=== PATIENT | male | born 1985 | race African-American/Black ===

== ENCOUNTER 2023-11-09 09:00 | Emergency (ER) | payer BC, OTHER, SELFPAY ==
[2023-11-09] MEDS ORDERED: LIDOCAINE 1% MPF 5 ML VIAL ONE (09:15)
--- NOTE | 2023-11-09 10:28 | ER ---
Nurse's Notes [facility] Name: Rk Pineda Age: 38 yrs Sex: Male : 1985 Arrival Date: 11/09/2023 Time: 09:00 Bed 14 Private MD: Diagnosis: Plantar foot puncture injury with foreign body and partial removal Presentation: 11/08 09:13 Chief complaint: Patient states: Hard plastic stuck in bottom of right foot. jl7 Coronavirus screen: At this time, the client does not indicate any symptoms associated with coronavirus-19. Ebola Screen: No symptoms or risks identified at this time. Complicating Factors: There are no complicating factors for this patient. Initial Sepsis Screen: Does the patient meet any 2 criteria? No. Patient's initial sepsis screen is negative. Does the patient have a suspected source of infection? No. Patient's initial sepsis screen is negative. Risk Assessment: Do you want to hurt yourself or someone else? Patient reports no desire to harm self or others. Onset of symptoms was November 09, 2023. 09:13 Method Of Arrival: Ambulatory [facility] 09:13 Acuity: RUDY 4 jl7 Triage Assessment: 09:14 General: Appears in no apparent distress. uncomfortable, Behavior is calm, cooperative, jl7 appropriate for age. Pain: Complains of pain in ball of right foot Pain currently is 3 out of 10 on a pain scale. Injury Description: Laceration sustained to right foot. Historical: - Allergies: 09:14 No Known Allergies; jl7 - PMHx: 09:14 Hypertensive disorder; jl7 - Immunization history:: Adult Immunizations unknown. - Infectious Disease History:: Denies. - Social history:: Smoking status: Patient denies any tobacco usage or history of. Screenin:08 [facility] ED Fall Risk Assessment (Adult) History of falling in the last 3 months, rs5 including since admission No falls in past 3 months (0 pts) Confusion or Disorientation No (0 pts) Intoxicated or Sedated No (0 pts) Impaired Gait Yes (1 pt) Mobility Assist Device Used No (0 pt) Altered Elimination No (0 pt) Score/Fall Risk Level 0 - 2 = Low Risk Oriented to surroundings, Maintained a safe environment. Abuse screen: Denies threats or abuse. Nutritional screening: No deficits noted. Tuberculosis screening: No symptoms or risk factors identified. Assessment: 09:08 General: Appears in no apparent distress. comfortable, Behavior is calm, cooperative. rs5 Pain: Denies pain. Neuro: Level of Consciousness is awake, alert, obeys commands, Oriented to person, place, time, situation. Cardiovascular: Patient's skin is warm and dry. Respiratory: Respiratory effort is even, unlabored, Respiratory pattern is regular, symmetrical. GI: Abdomen is round non-distended. : No signs and/or symptoms were reported regarding the genitourinary system. EENT: No signs and/or symptoms were reported regarding the EENT system. Derm: Skin is intact, Skin is dry, Skin is normal, Skin temperature is warm. Musculoskeletal: Range of motion: intact in all extremities. 09:08 Injury Description: small piece of plastic protruding out of bottom of pt's right foot, rs5 pt states "I stepped on a piece of plastic and it got stuck in my foot". 10:50 Reassessment: provider at bedside. rs5 10:51 Reassessment: Patient and/or family updated on plan of care and expected duration. Pain rs5 level reassessed. Patient is alert, oriented x 3, equal unlabored respirations, skin warm/dry/pink. Patient states feeling better. 10:55 Injury Description: Laceration is clean, not bleeding. rs5 Vital Signs: 09:13 BP 153 / 86; Pulse 90; Resp 17; Temp 98.1; Pulse Ox 98% ; Weight 158.76 kg; Height 5 jl7 ft. 11 in. ; Pain 3/10; 10:51 BP 149 / 81; Pulse 81; Resp 18; Pulse Ox 99% on R/A; rs5 09:13 Body Mass Index 48.81 (158.76 kg, 180.34 cm) jl7 09:13 Pain Scale: Adult jl7 ED Course: 09:02 Patient arrived in ED. mg5 09:08 Patient has correct armband on for positive identification. Placed in gown. Bed in low rs5 position. Call light in reach. Side rails up X2. 09:08 No provider procedures requiring assistance completed. rs5 09:11 Dwayne Reilly MD is Attending Physician. sp3 09:14 Triage completed. jl7 09:14 Arm band placed on right wrist. jl7 09:31 Bowen, Shawn, RN is Primary Nurse. rs5 09:32 Foot Right 3 View XRAY In Process Unspecified. EDMS 10:27 Eitan Lyn DPM is Referral Physician. sp3 10:55 IV discontinued, intact, bleeding controlled, No redness/swelling at site. Pressure rs5 dressing applied. Administered Medications: No medications were administered Medication: 10:50 VIS not applicable for this client. rs5 Outcome: 10:27 Discharge ordered by . sp3 10:55 Discharged to home ambulatory, rs5 10:55 Condition: stable 10:55 Discharge instructions given to patient, family, Instructed on discharge instructions, follow up and referral plans. medication usage, Demonstrated understanding of instructions, follow-up care, medications, Prescriptions given X 1, 10:57 Patient left the ED. rs5 Signatures: Dispatcher [employer] EDMS Mahesh Benitez RN RN jl7 Dwayne Reilly MD MD sp3 Shawn Bowen, RN RN rs5 Sugey Davis mg5 Corrections: (The following items were deleted from the chart) 12:28 12:05 Reassessment: No changes from previously documented assessment. rs5 rs5
--- NOTE | 2023-11-09 10:28 | EDPHYS ---
Physician Documentation [facility] Name: Rk Pineda Age: 38 yrs Sex: Male : 1985 Arrival Date: 11/09/2023 Time: 09:00 Bed 14 Private MD: ED Physician Dwayne Reilly HPI: 11/08 09:23 This 38 yrs old Black Male presents to ER via Ambulatory with complaints of plantar sp3 foreign body right. 09:23 38-year-old male with hypertension presents with right foot pain secondary to stepping sp3 on a "piece of hard plastic was broken off my juicer lid". Apparently the plastic was on the floor left over from a prior incident and today he stepped on it and he states that a piece of his "lodged in his foot". Patient attempted self removal at home with tweezers and he states that he had some bleeding that occurred and he was unable to fully get it. He states he took off a piece of his skin as well in the process to access it. He denies any other injury, direct trauma or high impact injury. No prior injury to the foot. Incident occurred this morning. Review of systems negative for pain anywhere else on the foot, ankle, knee or entire extremity. Remainder of ROS negative in terms of other systems.. Historical: - Allergies: 09:14 No Known Allergies; jl7 - PMHx: 09:14 Hypertensive disorder; jl7 - Immunization history:: Adult Immunizations unknown. - Infectious Disease History:: Denies. - Social history:: Smoking status: Patient denies any tobacco usage or history of. ROS: 09:25 Constitutional: Negative for fever, chills, and weight loss, Eyes: Negative for injury, sp3 pain, redness, and discharge, ENT: Negative for injury, pain, and discharge, Neck: Negative for injury, pain, and swelling, Cardiovascular: Negative for chest pain, palpitations, and edema, Respiratory: Negative for shortness of breath, cough, wheezing, and pleuritic chest pain, Abdomen/GI: Negative for abdominal pain, nausea, vomiting, diarrhea, and constipation, Back: Negative for injury and pain, : Negative for injury, bleeding, discharge, and swelling, Neuro: Negative for headache, weakness, numbness, tingling, and seizure, Psych: Negative for depression, anxiety, suicide ideation, homicidal ideation, and hallucinations, Allergy/Immunology: Negative for hives, rash, and allergies, Endocrine: Negative for neck swelling, polydipsia, polyuria, polyphagia, and marked weight changes, Hematologic/Lymphatic: Negative for swollen nodes, abnormal bleeding, and unusual bruising, 09:25 All other systems are negative, Exam: 09:25 Constitutional: This is a well developed, well nourished patient who is awake, alert, sp3 and in no acute distress. Head/Face: Normocephalic, atraumatic. Chest/axilla: Normal chest wall appearance and motion. Nontender with no deformity. No lesions are appreciated. Cardiovascular: Regular rate and rhythm with a normal S1 and S2. No gallops, murmurs, or rubs. Normal PMI, no JVD. No pulse deficits. Respiratory: Lungs have equal breath sounds bilaterally, clear to auscultation and percussion. No rales, rhonchi or wheezes noted. No increased work of breathing, no retractions or nasal flaring. Neuro: Awake and alert, GCS 15, oriented to person, place, time, and situation. Cranial nerves II-XII grossly intact. Motor strength 5/5 in all extremities. Sensory grossly intact. Cerebellar exam normal. Normal gait. 09:25 Musculoskeletal/extremity: Patient has a stellate type wound on the anterior portion of the plantar right foot approximately one third from the toes in terms of length of the foot. A skin defect is noted in the center of approximately 3 mm. Nothing hard palpable with finger. Area is painful on any manipulation.. Vital Signs: 09:13 BP 153 / 86; Pulse 90; Resp 17; Temp 98.1; Pulse Ox 98% ; Weight 158.76 kg; Height 5 jl7 ft. 11 in. ; Pain 3/10; 10:51 BP 149 / 81; Pulse 81; Resp 18; Pulse Ox 99% on R/A; rs5 09:13 Body Mass Index 48.81 (158.76 kg, 180.34 cm) 7 09:13 Pain Scale: Adult jl7 MDM: 09:11 Patient medically screened. sp3 09:26 Data reviewed: vital signs, nurses notes, radiologic studies. ED course: 38-year-old sp3 male with right plantar foot injury and possible foreign body consisting of plastic. X-ray is pending to assess any radiographic evidence of foreign body. Local exploration will likely occur once I review x-rays as patient states that he still feels it is there. Unknown if the plastic will show up on x-ray. Final disposition pending workup, patient course, and potential procedure.. 10:25 ED course: X-ray demonstrates likely foreign body. Local anesthetic applied 1% sp3 lidocaine 5 mL total with adequate anesthesia after irrigation and Betadine application. Wound explored and extended by approximately 1 cm with scalpel. Lyubov forceps used to partially remove plastic fragments. Smaller fragment still likely remain. I do not feel continued exploration beneficial. Wound cleaned further and left open for secondary intention closure. I recommended patient find podiatry in [place] wherever he can through his insurance. He is visiting from [place] here for work. General precautions also given. Patient placed on antibiotics. Follow-up with podiatry and PCP.. 10:36 ED course: Patient will be discharged with appointment at 11:10 AM with [place] [facility] with podiatry there. I have called their office and arranged for immediate follow-up for further potential intervention.. 11/08 09:14 Order name: Foot Right 3 View XRAY; Complete Time: 10:35 sp3 Administered Medications: No medications were administered Disposition Summary: 11/09/23 10:27 Discharge Ordered Notes: Location: Home sp3 Condition: Stable sp3 Diagnosis - Plantar foot puncture injury with foreign body and partial removal sp3 Followup: sp3 - With: Eitan Lyn DPM - When: Upon discharge from the Emergency Department - Reason: Recheck today's complaints Discharge Instructions: - Discharge Summary Sheet sp3 - Hand or Foot Foreign Body, Adult sp3 Forms: - Medication Reconciliation Form sp3 - Antibiotic Education sp3 - Prescription Opioid Use sp3 - Patient Portal Instructions sp3 - Leadership Thank You Letter sp3 Prescriptions: - Cephalexin 500 mg Oral Capsule - take 1 capsule ORAL route every 6 hours for 10 days; 40 capsule; Refills: 0, sp3 Product Selection Permitted Signatures: Dispatcher [employer] EDMaehsh Govea, RN RN jl7 Dwayne Reilly MD MD sp3
--- NOTE | 2023-11-09 10:31 | RAD REPORT ---
EXAM DESCRIPTION: RAD - Foot Right 3 View - 11/09/2023 9:30 am CLINICAL HISTORY: plantar foreign body COMPARISON: No comparisons TECHNIQUE: Right foot, 3 views. FINDINGS: No fracture, dislocation or periosteal reaction. Linear radiodensity projecting at the sole of the foot, seen on the oblique and lateral views. No air or foreign body in the soft tissues. IMPRESSION: Linear radiodensity projecting at the sole of the foot with history of foreign body. No acute osseus abnormality.
[2023-11-09 11:17] VITALS: BP 153/86; TEMP 98.1; O2SAT 98
== END 2023-11-09 10:57 | disposition home or self-care (01) ==
LOC: ER 09:00
DX: S91.341A Puncture wound with foreign body, right foot, initial encounter (principal)
CPT/HCPCS: 73630; 99283; J2001